=== PATIENT | male | born 1995 | race Caucasian/White ===

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

== ENCOUNTER 2021-02-05 11:49 | Emergency (ER) | payer MEDICAID ==
[2021-02-05 13:46] LABS: BASOPHIL 0.6 % (0-2); EOSINOPHIL 1.4 % (0-5); HCT 40.6 % (42.0-52.0); HGB 13.8 g/dl (13.2-18.0); LYMPHOCYTE 16.4 % (15-48); MCH 29.9 pg (25.0-31.0); MCV 87.9 fL (78.0-100.0); MONOCYTE 9.3 % (0-12); MPV 10.5 fL (6.0-9.5); NEUTROPHIL 72.1 % (41-80); NRBC 0; PLT 188 K/uL (150-400); RBC 4.62 M/uL (4.70-6.00); RDW 12.4 % (11.5-14.0)
[2021-02-05 14:17] LABS: ALBUMIN 4.2 g/dL (3.4-5.0); BILIRUBIN - TOTAL 3.1 mg/dL (0.2-1.0); BUN/CREAT RATIO (CALC) 7.5 RATIO; CREATININE 0.93 mg/dL (0.67-1.17); GLOBULIN (CALCULATION) 3.3 g/dL; POTASSIUM 3.8 mmol/L (3.5-5.1); TOTAL PROTEIN 7.5 g/dL (6.4-8.2)
[2021-02-05 14:33] LABS: INFLUENZA A NAA NEGATIVE (NEGATIVE)
[2021-02-05 14:35] LABS: CORONAVIRUS 2019 SARS-COV-2 POSITIVE (NEGATIVE)
[2021-02-05 14:53] LABS: BILIRUBIN NEGATIVE (NEGATIVE); BLOOD NEGATIVE Ery/uL (NEGATIVE); CLARITY CLEAR (CLEAR); COLOR YELLOW (YELLOW); GLUCOSE (U) NORMAL (NORMAL); LEUKOCYTES NEGATIVE Leu/uL (NEGATIVE); NITRITE NEGATIVE (NEGATIVE); PROTEIN NEGATIVE (NEGATIVE); pH 6.5 (5.0-9.0)
[2021-02-05] MEDS ORDERED: VENTOLIN HFA IN18 GM INH (15:07)
== END 2021-02-05 15:19 | disposition home or self-care (01) ==
LOC: FER 11:49
PROVIDERS: Nurse Practitioner Family
DX: U07.1 COVID-19 (principal)
CPT/HCPCS: 36415; 71045; 80053; 81003; 85025; J7030; U0002

== ENCOUNTER 2021-07-26 09:51 | Emergency (ER) | payer OTHER ==
[~2021-07-26 09:51] MED LIST: VENTOLIN HFA IN18 GM INH
[2021-07-26 10:17] LABS: BASOPHIL 0.4 % (0-2); EOSINOPHIL 1.5 % (0-5); HCT 42.9 % (42.0-52.0); HGB 14.9 g/dl (13.2-18.0); LYMPHOCYTE 28.4 % (15-48); MCH 30.2 pg (25.0-31.0); MCHC 34.7 g/dL (32.0-36.0); MCV 86.8 fL (78.0-100.0); MONOCYTE 8.4 % (0-12); MPV 10.4 fL (6.0-9.5); NEUTROPHIL 60.9 % (41-80); NRBC 0; PLT 211 K/uL (150-400); RBC 4.94 M/uL (4.70-6.00); RDW 12.1 % (11.5-14.0); WBC 7.3 K/uL (4.0-10.5)
[2021-07-26 10:34] LABS: CREATININE 1.07 mg/dL (0.67-1.17)
[2021-07-26] MEDS ORDERED: NAPROXEN500 MG PO (10:41)
== END 2021-07-26 10:47 | disposition home or self-care (01) ==
LOC: FER 09:51
PROVIDERS: Emergency Medicine
DX: M94.0 Chondrocostal junction syndrome [Tietze] (principal); F17.290 Nicotine dependence, other tobacco product, uncomplicated; Z86.16 Personal history of COVID-19
CPT/HCPCS: 36415; 71046; 80048; 84484; 85025; 85379; 93005

== ENCOUNTER 2021-08-17 10:33 | Emergency (ER) | payer OTHER ==
[~2021-08-17 10:33] MED LIST changes: +NAPROXEN500 MG PO
== END 2021-08-17 11:30 | disposition left against medical advice (07) ==
LOC: FER 10:33
DX: F41.9 Anxiety disorder, unspecified (principal); Z53.8 Procedure and treatment not carried out for other reasons; Z28.311 Partially vaccinated for COVID-19
CPT/HCPCS: 99281

== ENCOUNTER 2021-11-11 15:31 | Emergency (ER) | payer SELFPAY ==
[2021-11-11 16:49] LABS: BASOPHIL 0.9 % (0-2); EOSINOPHIL 3.4 % (0-5); HCT 47.2 % (42.0-52.0); HGB 15.9 g/dl (13.2-18.0); LYMPHOCYTE 33.8 % (15-48); MCH 30.2 pg (25.0-31.0); MCHC 33.7 g/dL (32.0-36.0); MCV 89.6 fL (78.0-100.0); MONOCYTE 15.5 % (0-12); MPV 10.7 fL (6.0-9.5); NEUTROPHIL 46.1 % (41-80); NRBC 0; PLT 176 K/uL (150-400); RBC 5.27 M/uL (4.70-6.00); RDW 12.3 % (11.5-14.0); WBC 3.3 K/uL (4.0-10.5)
[2021-11-11 17:34] LABS: ALBUMIN 4.3 g/dL (3.4-5.0); BILIRUBIN - TOTAL 0.8 mg/dL (0.2-1.0); BUN/CREAT RATIO (CALC) 8.4 RATIO; CREATININE 0.95 mg/dL (0.67-1.17); GLOBULIN (CALCULATION) 3.5 g/dL; POTASSIUM 4.1 mmol/L (3.5-5.1); TOTAL PROTEIN 7.8 g/dL (6.4-8.2)
[2021-11-11 17:47] LABS: BILIRUBIN NEGATIVE (NEGATIVE); BLOOD NEGATIVE Ery/uL (NEGATIVE); CLARITY CLEAR (CLEAR); COLOR YELLOW (YELLOW); GLUCOSE (U) NORMAL (NORMAL); LEUKOCYTES NEGATIVE Leu/uL (NEGATIVE); NITRITE NEGATIVE (NEGATIVE); PROTEIN NEGATIVE (NEGATIVE); UROBILINOGEN 0.2 mg/dL (0.2-1.0); pH 6.5 (5.0-9.0)
[2021-11-11 17:48] LABS: INFLUENZA A NAA NEGATIVE (NEGATIVE)
[2021-11-11 17:49] LABS: CORONAVIRUS 2019 SARS-COV-2 POSITIVE (NEGATIVE)
[2021-11-11] MEDS ORDERED: PEPCID AC20 MG PO (19:07)
[2021-11-11] MEDS ORDERED: MIRALAX17 GM PO (19:07)
== END 2021-11-11 19:22 | disposition home or self-care (01) ==
LOC: FER 15:31
PROVIDERS: Physician Assistant
DX: U07.1 COVID-19 (principal); K59.00 Constipation, unspecified; F17.290 Nicotine dependence, other tobacco product, uncomplicated; Z28.311 Partially vaccinated for COVID-19
CPT/HCPCS: 36415; 80053; 81003; 83690; 85025; J7030; Q9967; U0002

== ENCOUNTER 2021-11-23 04:02 | Emergency (ER) | payer SELFPAY ==
[~2021-11-23 04:02] MED LIST changes: +MIRALAX17 GM PO; +PEPCID AC20 MG PO
[2021-11-23 04:52] LABS: BASOPHIL 0.6 % (0-2); EOSINOPHIL 2.2 % (0-5); HGB 14.3 g/dl (13.2-18.0); LYMPHOCYTE 23.2 % (15-48); MCV 88.1 fL (78.0-100.0); MONOCYTE 7.3 % (0-12); MPV 10.8 fL (6.0-9.5); NEUTROPHIL 66.6 % (41-80); NRBC 0; PLT 215 K/uL (150-400); RBC 4.77 M/uL (4.70-6.00); WBC 6.7 K/uL (4.0-10.5)
[2021-11-23 05:43] LABS: CREATININE 0.92 mg/dL (0.67-1.17); POTASSIUM 3.8 mmol/L (3.5-5.1)
[2021-11-23 05:44] LABS: ALBUMIN 4.1 g/dL (3.4-5.0); BILIRUBIN - TOTAL 1.4 mg/dL (0.2-1.0); GLOBULIN (CALCULATION) 3.2 g/dL; MAGNESIUM 1.8 mg/dL (1.8-2.4); TOTAL PROTEIN 7.3 g/dL (6.4-8.2)
== END 2021-11-23 06:13 | disposition home or self-care (01) ==
LOC: FER 04:02
PROVIDERS: Internal Medicine
DX: R42 Dizziness and giddiness (principal); R52 Pain, unspecified; R05.9 Cough, unspecified; U09.9 Post COVID-19 condition, unspecified; F17.290 Nicotine dependence, other tobacco product, uncomplicated; Z28.311 Partially vaccinated for COVID-19
CPT/HCPCS: 36415; 80053; 83735; 84443; 85025; J1100; J2550; J7120

== ENCOUNTER 2022-01-25 05:45 | Emergency (ER) | payer MEDICAID ==
[2022-01-25 06:44] LABS: BILIRUBIN NEGATIVE (NEGATIVE); BLOOD TRACE-INTACT Ery/uL (NEGATIVE); CLARITY CLEAR (CLEAR); COLOR YELLOW (YELLOW); GLUCOSE (U) NORMAL (NORMAL); LEUKOCYTES NEGATIVE Leu/uL (NEGATIVE); NITRITE NEGATIVE (NEGATIVE); PROTEIN NEGATIVE (NEGATIVE); SPECIFIC GRAVITY >=1.030 (1.001-1.030); UROBILINOGEN 0.2 mg/dL (0.2-1.0)
[2022-01-25 06:51] LABS: SQUAMOUS EPITHELIAL CELLS RARE; URINARY RBC RARE
[2022-01-26 22:09] LABS: CHLAMYDIA TRACHOMATIS, NAA Negative (Negative); NEISSERIA GONORRHOEAE, NAA Negative (Negative)
== END 2022-01-25 07:28 | disposition home or self-care (01) ==
LOC: FER 05:45
PROVIDERS: Emergency Medicine
DX: R30.0 Dysuria (principal); R30.9 Painful micturition, unspecified; F17.200 Nicotine dependence, unspecified, uncomplicated; Z88.8 Allergy status to other drugs, medicaments and biological substances; Z28.311 Partially vaccinated for COVID-19
CPT/HCPCS: 81001; 87491; 87591; 99283; J0696